=== PATIENT | male | born 1995 | race Caucasian/White ===

== ENCOUNTER 2020-12-06 05:40 | Emergency (ER) | payer SELFPAY ==
[~2020-12-06] VITALS: Ht 200.7 cm; Wt 76.7 kg
[2020-12-06 05:50] VITALS: BP 158/82
[2020-12-06] MEDS ORDERED: KETOROLAC 30 MG/ML VIAL IM ONE (06:05)
[2020-12-06 06:10] VITALS: BP 158/82
--- NOTE | 2020-12-06 06:12 | NUR ---
25 Y/O MALE CAME TO THE ED FOR LEFT ELBOW PAIN X3 DAYS. PT STATES THAT HE FELL INTO A LADDER LAST 12/04/20 AND LANDED RIGHT ON THE LEFT ELBOW. PT STATES 8/10 SHARP PAIN THAT RADIATES TO LEFT SHOULDER. PT IS NOT ABLE TO FLEX OR EXTEND LEFT ELBOW. PMH: DENIES NKA
--- NOTE | 2020-12-06 06:36 | NUR ---
XRAY AT BEDSIDE
--- NOTE | 2020-12-06 07:18 | NUR ---
GIVEN REPORT TO RAULITO RODRIGUEZ FOR CONTINUITY OF CARE
[2020-12-06] MEDS ORDERED: NAPR-54 PO (07:45)
--- NOTE | 2020-12-06 07:59 | NUR ---
APPLIED POSTERIOR LONG ARM SPLINT AND SLING TO LEFT ARM WITHOUT ANY ISSUES
== END 2020-12-06 07:55 | disposition home or self-care (01) ==
LOC: MED 05:40
DX: S52.92XA Unspecified fracture of left forearm, initial encounter for closed fracture (principal); W19.XXXA Unspecified fall, initial encounter; Y93.89 Activity, other specified; Y92.89 Other specified places as the place of occurrence of the external cause; Y99.8 Other external cause status
CPT/HCPCS: 29105; 71045; 73080; 96372; 99284; J1885